=== PATIENT | male | born 1985 | race Caucasian/White ===

== ENCOUNTER 2017-05-30 08:33 | Outpatient (CLI) | payer BC ==
--- NOTE | 2017-05-30 09:35 | RAD ---
THREE VIEWS OF THE LUMBAR SPINE: DATE: 05/30/17. PROVIDED CLINICAL HISTORY: Low back pain. FINDINGS: Five [id number] lumbar-type vertebral bodies are present. Lumbar alignment appears normal. Sc hmorl's node formation is seen at the inferior end plate of T12. Pedicles appear intact. Sacroilia c joints appear symmetric. Vertebral body heights and intervertebral disk space heights appear pres erved. IMPRESSION: Schmorl's node formation at inferior end plate of T12. Otherwise, unremarkable lumbar spine radiogr aphs. POS: VU
== END 2017-05-30 08:34 | disposition home or self-care (01) ==
LOC: RAD-FRANK 08:33
PROVIDERS: ATTEND Nurse Practitioner Family
DX: M54.5 Low back pain (principal); M51.44 Schmorl's nodes, thoracic region
CPT/HCPCS: 72100

== ENCOUNTER 2017-07-22 08:45 | Outpatient (CLI) | payer BC | END 2017-07-22 08:46 | disposition home or self-care (01) | LOC: BICMRI 08:45 | PROVIDERS: ATTEND Neurological Surgery | DX: M54.6 Pain in thoracic spine (principal) | CPT/HCPCS: 72157 ==

== ENCOUNTER 2019-07-02 07:21 | Outpatient (CLI) | payer BC ==
--- NOTE | 2019-07-02 08:07 | ULT ---
ABDOMINAL ULTRASOUND: DATE: 07/02/2019. PROVIDED CLINICAL HISTORY: Elevated LFTs. FINDINGS: Visualized abdominal aorta, IVC, and pancreas appear normal. The liver appears echogenic compatible with fatty infiltration. No evidence for mass or intrahepatic biliary ductal dilatation. The common duct is obscured. The gallbladder demonstrates no stones, wa ll thickening, or pericholecystic fluid. Kidney demonstrate no hydronephrosis or mass. The spleen is not enlarged and demonstrates no focal abnormality. IMPRESSION: Fatty infiltration of the liver. POS: OFF
== END 2019-07-02 07:22 | disposition home or self-care (01) ==
LOC: ULT 07:21
DX: R94.5 Abnormal results of liver function studies (principal); K76.0 Fatty (change of) liver, not elsewhere classified
CPT/HCPCS: 93975